=== PATIENT | female | born 1960 | race African-American/Black ===

== ENCOUNTER 2016-11-12 20:12 | Emergency (ER) | payer OTHER ==
--- NOTE | ~2016-11-12 | CT4 ---
[facility] A Service of [facility] RADIOLOGY TEXT RESULTS PATIENT: KOREY BERNSTEIN LOCATION: [facility] : 58 UNIT #: [id number] AGE: [address]: Costa Friedman MD SEX: F ORDER DR: [id number] [address] [place], [place] [address] [id number] MR#: [id number] Acc #: [id number] NAME: KOREY BERNSTEIN : 1960 SEX: F STUDY DATE/TIME: 11/12/2016 21:02 UNIT: [facility] ROOM: STUDY DESCRIPTION: CT Abd and Pelv Wo Cont Attending Physician: Costa Friedman M.D. Ordering Physician: Costa Friedman M.D. MEDICAL IMAGING REPORT This report is preliminary unless electronic signature is present EXAM CT abdomen and pelvis INDICATIONS Abdominal pain. Right lower quadrant pain. Nausea and right flank pain. 1-week duration. TECHNIQUE CT of the abdomen and pelvis without contrast. Coronal and sagittal reconstructions were obtained. This CT exam was performed with one or more of the following radiation dose reduction techniques: Automatic exposure control, adjustment of mA and/or kV according to patient size, and iterative reconstruction. COMPARISON None available. FINDINGS Noncontrast evaluation of the liver, gallbladder, pancreas, spleen, and adrenal glands are within normal limits. No urinary calculi. No hydronephrosis. The bowel is not dilated. The appendix is normal. The abdominal aorta is normal in caliber. PELVIS: Bladder is unremarkable. No enlarged pelvic or inguinal lymph nodes. The uterus is surgically absent. The ovaries are within normal limits. No acute osseous abnormalities. IMPRESSION 1. No acute findings in the abdomen or pelvis. No findings to account for the patient's symptoms. [facility] A Service of [facility] RADIOLOGY TEXT RESULTS PATIENT: KOREY BERNSTEIN LOCATION: [facility] : 58 UNIT #: [id number] AGE: [address]: Costa Friedman MD SEX: F ORDER DR: Dictated by... Luis Farias M.D. THIS IS AN ELECTRONICALLY VERIFIED REPORT Luis Farias M.D. at 11/13/2016 3:06 PM RPC/narinder TD: 11/13/2016 01:36 JOB #: [id number] MEDICAL IMAGING REPORT Page 1 of 1 COPY
[2016-11-12 18:22] LABS: BASOPHIL% 0.4 % (0-2.5); DIFF IND NO; EOSINOPHIL% 0.8 % (0.0-7.0); HEMOGLOBIN 13.2 gm/dL (12.0-16.0); LYMPHOCYTE# 1.7 X10e3 (1.0-3.5); LYMPHOCYTE% 35.2 % (17.0-45.0); MEAN CELL VOLUME 83.4 FL (83-96); MEAN CORPUSCULAR HEMOGLOBIN 27.6 PG (28-34); MEAN CORPUSCULAR HGB CONC 33.1 g/dL (30-36); MEAN PLATELET VOLUME 8.6 FL (6.5-11.5); MONOCYTE# 0.4 X10e3 (0-1.0); MONOCYTE% 7.3 % (3.0-12.0); NEUTROPHIL# 2.7 X10e3 (1.5-7.1); NEUTROPHIL% 56.3 % (40-75); PLATELET COUNT 255 X10e3 (140-420); RED BLOOD COUNT 4.79 X10e (3.90-5.30); RED CELL DISTRIBUTION WIDTH 13.8 % (11.0-15.5); WHITE BLOOD COUNT 4.8 X10e3 (4.0-10.5)
[2016-11-12 18:45] LABS: ALBUMIN SERUM 5.2 g/dL (3.5-5.0); ALKALINE PHOSPHATASE 55 U/L (32-92); ALT (SGPT) 29 U/L (10-40); AMYLASE 28 U/L (0-46); AST (SGOT) 22 U/L (10-42); BILIRUBIN,TOTAL 0.2 mg/dL (0.2-2.0); BLOOD UREA NITROGEN 14 mg/dL (9-23); BUN/CREATININE RATIO 23.33; CALCIUM SERUM 9.8 mg/dL (8.4-10.2); CARBON DIOXIDE 30 mmol/L (22-31); CHLORIDE 102 mmol/L (100-111); CREATININE SERUM 0.6 mg/dL (0.6-1.4); GLOM FILT RATE Estimated 117.3 mL/min (>60); GLUCOSE FASTING 99 mg/dL (70-110); LIPASE 24 U/L (22-51); POTASSIUM 4.4 mmol/L (3.5-5.1); SODIUM 141 mmol/L (135-145)
[2016-11-12 18:47] LABS: BILIRUBIN, DIRECT <0.1 mg/dL (0.0-0.2); BILIRUBIN,INDIRECT 0.1 mg/dL (0.0-0.9)
[~2016-11-12 20:12] MED LIST: MULTI-DAY1 TAB PO; VERAPAMIL ER240 M1 PO; [UNRECOGNIZED DRUG - OTHER]
[2016-11-12 20:53] LABS: URINE SOURCE CLEAN CATCH
[2016-11-12 21:03] LABS: URINE APPEARANCE CLEAR; URINE BILIRUBIN NEG (NEG); URINE BLOOD 1+ (NEG); URINE COLOR YELLOW; URINE GLUCOSE NEG (NEG); URINE KETONE NEG (NEG); URINE LEUKOCYTE ESTERASE TRACE (NEG); URINE NITRATE NEG (NEG); URINE PH 5.5 (5-8); URINE PROTEIN NEG (NEG); URINE SPECIFIC GRAVITY 1.012 (1.003-1.035); URINE UROBILINOGEN 0.2 MG/DL (NEG)
[2016-11-12 21:08] LABS: URBCS1 AUWI 0-2 /[HPF] (0-2); URINE BACTERIA AUWI NEG (NEGATIVE); URINE SQUAMOUS EPITHELIAL CELL NONE SEEN /[HPF]
[2016-11-12 21:11] LABS: CULTURE INDICATED? NO
== END 2016-11-12 22:07 | disposition home or self-care (01) ==
LOC: CED 20:12
PROVIDERS: Emergency Medicine
DX: R10.31 Right lower quadrant pain (principal); B02.9 Zoster without complications; I10 Essential (primary) hypertension
CPT/HCPCS: 36415; 74176; 80048; 80076; 81003; 82150; 83690; 84703; 85025; 96374; 96375; 99284; J1885; J2405